=== PATIENT | female | born 1960 | race Caucasian/White ===

== ENCOUNTER 2016-06-01 10:41 | Emergency (ER) | payer OTHER ==
[~2016-06-01] VITALS: Ht 162.6 cm; Wt 71.2 kg
[~2016-06-01 10:41] MED LIST: ALBU8I INH; BACT800T5 PO; GABA300C3 PO; PERC5TAB12 PO; VALT1TAB26 PO; ZITH250T PO; ZOVI800T13 PO
[2016-06-01 10:46] VITALS: BP 143/83; PULSE 89; RESP 16; TEMP 97.7; O2SAT 97
--- NOTE | 2016-06-01 11:08 | PD ---
HPI Chief Complaint: Flank/Kidney Pain Time Seen by Provider: 10:58 Travel History International Travel<30 days: No Contact w/Intl Traveler<30days: No Traveled to known affect area: No History of Present Illness HPI The patient was seen and examined in the presence of the nurse. This patient complains of left flank pain. She's had it on and off for a week now. She saw her primary physician who did an x-ray and told her she had a kidney stone. Urinalysis reportedly had blood. She had an outpatient CT scanning of her abdomen and pelvis at [facility] this morning at 8 AM but doesn't know the results. She came here because her doctor wouldn't give her any pain medication according to her. Severity symptoms is moderate. No injury. No fever. No alleviating factors. PFSH Past Medical History Hx Anticoagulant Therapy: No Arthritis: No Asthma: No Autoimmune Disease: Yes (RADHA HAIR) Blood Disorders: No Anxiety: Yes Depression: Yes Heart Rhythm Problems: Yes (feels fluttering occassionally) Cancer: No Cardiovascular Problems: No High Cholesterol: No Chemotherapy: No Chest Pain: No Congestive Heart Failure: No COPD: Yes Cerebrovascular Accident: No Diabetes: No Diminished Hearing: No Endocrine: No Gastrointestinal Disorders: No GERD: No Glaucoma: No Genitourinary: No Headaches: Yes (occassional) Hepatitis: No Hiatal Hernia: No Hypertension: No Immune Disorder: Yes (RADHA HAIR) Implanted Vascular Access Dvce: No Kidney Stones: No Musculoskeletal: Yes Neurologic: Yes Psychiatric: Yes Reproductive: No Respiratory: Yes (Bronchitis) Immunizations Current: No Myocardial Infarction: No Radiation Therapy: No Renal Failure: No Seizures: No Sickle Cell Disease: No Sleep Apnea: Yes (possible) Thyroid Disease: No Ulcer: No ?: Not : 0 Para: 0 Dilation and Curettage (D&C): Yes Past Surgical History Abdominal Surgery: Yes (appendix) AICD: No Appendectomy: Yes Arteriovenous Shunt: No Cardiac Surgery: No Cholecystectomy: No Ear Surgery: No Endocrine Surgery: No Eye Surgery: No Genitourinary Surgery: No Gynecologic Surgery: Yes (hysterectomy) Hysterectomy: Yes Insulin Pump: No Joint Replacement: No Neurologic Surgery: No Oral Surgery: No Pacemaker: No Thoracic Surgery: No Other Surgery: Yes Social History Alcohol Use: No (not in 6 mon) Tobacco Use: Yes (1/2 PPD) Substance Use: Yes Allergies-Medications (Allergen,Severity, Reaction): Coded Allergies: Penicillin (Verified Allergy, Severe, UNKNOWN, 06/01/16) Seafood (Verified Allergy, Intermediate, Pt denies, 06/01/16) pt states does not have a allergy to seafood ricky Potts Reported Meds & Prescriptions Reported Meds & Active Scripts Active Review of Systems General / Constitutional: No: Fever Eyes: No: Visual changes HENT: No: Headaches Cardiovascular: No: Chest Pain or Discomfort Respiratory: No: Shortness of Breath Gastrointestinal: No: Abdominal Pain Genitourinary: Positive: Hematuria, Flank Pain, No: Dysuria Musculoskeletal: No: Pain Skin: No Rash Neurologic: No: Weakness Psychiatric: No: Depression Endocrine: No: Polydipsia Hematologic/Lymphatic: No: Easy Bruising Physical Exam Narrative GENERAL: Well-nourished, well-developed patient with left flank pain . SKIN: Focused skin assessment reveals no rash and nodules. Skin is Warm and dry. HEAD: Atraumatic. Normocephalic. EYES: Pupils equal and round. No scleral icterus. No injection or drainage. ENT: No nasal bleeding or discharge. Mucous membranes pink and moist. NECK: Trachea midline. No JVD. CARDIOVASCULAR: Regular rate and rhythm. No murmur appreciated. RESPIRATORY: No accessory muscle use. Clear to auscultation. Breath sounds equal bilaterally. GASTROINTESTINAL: Abdomen soft, non-tender, nondistended. Hepatic and splenic margins not palpable. MUSCULOSKELETAL: No obvious deformities. No clubbing. No cyanosis. No edema. NEUROLOGICAL: Awake and alert. No obvious cranial nerve deficits. Motor grossly within normal limits. Normal speech. PSYCHIATRIC: Appropriate mood and affect; insight and judgment normal. Data Data Last Documented VS Vital Signs Date Time Temp Pulse Resp B/P Pulse Ox O2 Delivery O2 Flow Rate FiO2 06/01/16 11:08 20 06/01/16 10:46 97.7 89 143/83 97 Orders Ondansetron Inj (Zofran Inj) (06/01/16 11:15) Ondansetron Inj (Zofran Inj) (06/01/16 11:15) Morphine Inj (Morphine Inj) (06/01/16 11:30) [facility] Medical Decision Making Medical Screen Exam Complete: Yes Emergency Medical Condition: Yes Medical Record Reviewed: Yes Differential Diagnosis Kidney stone, polynephritis, sciatica Narrative Course I have reviewed the patient's electronic medical record. I reviewed her CT scan results from this morning and printed out a copy and gave it to the patient. She has 2 masses, one on the left adrenal gland and one on the liver. I suspect these are incidental findings rather than the cause of her left flank pain. There is no kidney stone. I gave her injection of morphine and Vika Wrote her a prescription for tramadol Recommended she discuss results with primary physician Diagnosis Primary Impression: Acute left flank pain Additional Instructions: Discuss CT scan results with primary physician The patient was warned about potential sedation for the medications they will receive on prescription. The patient was advised to follow up with their physician and return if they worsen. Med/Other Pt SpecificInfo: Prescription(s) given Scripts Tramadol 50 Mg Tab50 Mg PO Q6H PRN (PAIN) #21 TAB Ref 0 Prov:Jalen Foote MD 06/01/16 Disposition: 01 DISCHARGE HOME Condition: Stable Jalen Foote MD Jun 01, 2016 11:08
[2016-06-01] MEDS ORDERED: ONDANSETRON HCL 4 MG/2 ML VIAL IM ONE ×2 (11:15)
[2016-06-01] MEDS ORDERED: TRAM50TA PO (11:21)
[2016-06-01] MEDS ORDERED: MORPHINE SULFATE 4 MG/ML INJ IM ONE (11:30)
[2016-08-01] MEDS ORDERED: XANA1TAB2 PO (08:47)
== END 2016-06-01 12:41 | disposition home or self-care (01) ==
LOC: PHED 10:41
DX: R10.84 Generalized abdominal pain (principal); J44.9 Chronic obstructive pulmonary disease, unspecified; F17.210 Nicotine dependence, cigarettes, uncomplicated
CPT/HCPCS: 96372; 99283; J2270; J2405